=== PATIENT | male | born 1950 | race Caucasian/White ===

== ENCOUNTER 2018-07-31 09:24 | Day surgery (SDC) | payer OTHER ==
[2018-07-31] MEDS ORDERED: LACTATED RINGERS 1,000 ML IV SCH (09:44)
[2018-07-31 10:10] VITALS: TEMP 97.6
[2018-07-31] MEDS ORDERED: LIDOCAINE 1% 20 ML VIAL (10MG/ML) FOR IV START INTRADERMA ONE (10:19)
[2018-07-31] MEDS ORDERED: PROPOFOL 10 MG/ML 20 ML VIAL IV ONE (10:35)
[2018-07-31] MEDS ORDERED: LIDOCAINE 1% INJ 10MG/ML (20 ML MDV) ONE (10:35)
--- NOTE | 2018-07-31 11:09 | P.PCN ---
Date of Procedure: 07/31/18 Procedure(s) Performed: Procedure: Total colonoscopy. Preoperative diagnosis: Screening for neoplasia. Postoperative diagnosis: Exam within normal limits. Preparation: HalfLytely prep. Sedation: Was provided by anesthesia. Brief clinical history: The patient is a 68-year-old male who is scheduled for this evaluation for screening for neoplasia age being his risk factor. He had a prior exam more than 12 or 15 years ago. The patient has no specific abdominal symptoms, change in bowel habits, bleeding or anemia. Procedure: With the patient on his left lateral decubitus position and after informed consent and adequate sedation, the perianal area was inspected and it did not show any fissures or fistulas. There were no masses felt on digital rectal examination. The Olympus CFH 190L video colonoscope was then inserted in the rectum in the usual fashion and advanced to the cecum. The preparation was less than ideal. The mucosa appeared healthy. No polyps or tumors were seen or any obvious diverticular disease or other pathology. I retroflexed the endoscope in the rectum before the endoscope was withdrawn. The patient tolerated the procedure well. Plan: The patient was reassured. Since his preparation was less than ideal, I recommended repeat exam in 5 years before we go with a 10-year schedule. He will follow up with you as planned.
[2018-07-31 11:18] VITALS: BP 125/74; PULSE 74; RESP 16
== END 2018-07-31 11:32 | disposition home or self-care (01) ==
LOC: ORWHC2ENDO 09:24
DX: Z12.11 Encounter for screening for malignant neoplasm of colon (principal); I25.10 Atherosclerotic heart disease of native coronary artery without angina pectoris; I10 Essential (primary) hypertension; E78.5 Hyperlipidemia, unspecified; Z95.5 Presence of coronary angioplasty implant and graft; F17.200 Nicotine dependence, unspecified, uncomplicated; K21.9 Gastro-esophageal reflux disease without esophagitis; Z79.899 Other long term (current) drug therapy
CPT/HCPCS: J2001; J2704; G0121

== ENCOUNTER → 2018-12-12 | Outpatient (CLI) | payer MEDICARE, OTHER ==
--- NOTE | 2018-12-12 13:50 | XR ---
Cervical spine Limited HISTORY: Pain, remote history of trauma 3 views of the cervical spine There is a minimal anterolisthesis grade 1 C2-3, retrolisthesis grade 1 C3-4, C4-5, C5-6. Multilevel spondylosis is present. Loss of disc height greatest at C3-4. Vertebral soft tissues remarkable for s ome calcification likely in the carotid artery distribution on the right and possibly left. Lung apic es are normal. There is multilevel facet arthropathy. IMPRESSION: Degenerative disc disease, facet arthropathy. Additional findings above.
--- NOTE | 2018-12-12 13:52 | XR ---
Lumbar spine HISTORY: Pain, remote history of trauma 3 views of the lumbar spine No comparisons Lumbar vertebral bodies show preserved height. There is a marked scoliotic curvature present of the t horacic lumbar spine. Multilevel spondylosis is present. Loss of disc height present at the intervert ebral levels. Sclerosis present in the posterior elements of the lumbar spine. There are vascular lianne cifications noted incidentally. Ribs are not clearly identified at what is believed to be T12. Questi on some sacralization of L5. IMPRESSION: Osteopenia. Scoliosis, degenerative disc disease and facet arthropathy, additional findin gs above. Correlate with plain film prior to any intervention.
== END | disposition home or self-care (01) ==
LOC: RADXRMAIN 11:50
PROVIDERS: ATTEND Chiropractor
DX: M43.12 Spondylolisthesis, cervical region (principal); M50.30 Other cervical disc degeneration, unspecified cervical region; M51.36 Other intervertebral disc degeneration, lumbar region; M47.812 Spondylosis without myelopathy or radiculopathy, cervical region; M47.816 Spondylosis without myelopathy or radiculopathy, lumbar region; M46.92 Unspecified inflammatory spondylopathy, cervical region; M46.96 Unspecified inflammatory spondylopathy, lumbar region; M41.86 Other forms of scoliosis, lumbar region; M85.88 Other specified disorders of bone density and structure, other site
CPT/HCPCS: 72040; 72100

== ENCOUNTER → 2019-06-03 | Outpatient (CLI) | payer MEDICARE, OTHER ==
[2019-06-03 09:01] LABS: African American GFR (CKD) >90 (>60 ml/min/1.73 sqM); Blood Urea Nitrogen 9 mg/dL (9-20)
--- NOTE | 2019-06-03 10:35 | CT ---
EXAMINATION TYPE: CT chest w con DATE OF EXAM: 06/03/2019 COMPARISON: NONE HISTORY: Shortness of breath, COPD CT DLP: 376.24 mGycm. Automated Exposure Control for Dose Reduction was Utilized. TECHNIQUE: CT scan of the thorax is performed following with IV Contrast, patient injected with 100 ml mL of Isovue 300. FINDINGS: LUNGS: There is mild linear scarring and/or atelectasis in both bases. No suspicious nodules or natasha s. No consolidation. No pleural effusion or pneumothorax. Mild diffuse emphysematous change slightly more prominent in the upper lungs. MEDIASTINUM: There are no greater than 1 cm hilar or mediastinal lymph nodes. No cardiomegaly or pe ricardial effusion is seen. Coronary artery calcification and/or stents. OTHER: Hypodense lesion lateral right hepatic lobe favor simple thin-walled cyst image 57. There is a hemivertebra T11 level causing focal dextroconvex scoliosis and loss of normal thoracic kyphosis. Th ere is moderate multilevel spurring throughout the thoracic spine. IMPRESSION: 1. Mild emphysematous change without acute pulmonary process. 2. 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
--- NOTE | 2019-06-03 10:58 | CT ---
EXAMINATION TYPE: CT hip RT wo con DATE OF EXAM: 06/03/2019 COMPARISON: None. HISTORY: Hip pain CT DLP: 273.28 mGycm Automated exposure control for dose reduction was used. FINDINGS: There is mild to borderline moderate axial joint space loss in the right hip. There is mild acetabula r spurring superior lateral aspect. There is no suspicious joint effusion. No significant subchondral cystic change. Femoral head shape is maintained. No suspicious focal osseous lesion. Muscle bulk in the right thigh I is maintained. No significant right groin hernia or adenopathy. Visualized portion of pelvis shows no significant abnormality. Some occasional sigmoid colonic divert icula are present. IMPRESSION: As above.
== END | disposition home or self-care (01) ==
LOC: RADCTMAIN 08:21
PROVIDERS: ATTEND Family Medicine
DX: J43.9 Emphysema, unspecified (principal); M76.891 Other specified enthesopathies of right lower limb, excluding foot
CPT/HCPCS: 82565; 84520; 71260; 36415; 73700; Q9967

== ENCOUNTER 2020-11-01 13:26 | Inpatient (IN) | payer OTHER, MEDICARE ==
[2020-11-01 14:09] LABS: Basophils % (A) 1 %; Eosinophils % (A) 1 %; HCT 33.7 % (39.0-53.0); HGB 12.5 gm/dL (13.0-17.5); Lymphocytes # (A) 1.7 k/uL (1.0-4.8); Lymphocytes % (A) 41 %; MCH 37.3 pg (25.0-35.0); MCHC 36.9 g/dL (31.0-37.0); Mean Platelet Volume 7.3; Monocytes # (A) 0.3 k/uL (0-1.0); Monocytes % (A) 8 %; Neutrophils % (A) 48 %; Platelet Count 135 k/uL (150-450); RBC 3.34 m/uL (4.30-5.90); RDW 12.9 % (11.5-15.5); WBC 4.2 k/uL (3.8-10.6)
[2020-11-01 14:18] LABS: INR 1.1 (<1.2); Partial Thromboplastin Time 29.3 sec (22.0-30.0); Prothrombin Time 11.3 sec (9.0-12.0)
[2020-11-01 14:26] LABS: ALT 28 U/L (4-49); AST 79 U/L (17-59); African American GFR (CKD) >90 (>60 ml/min/1.73 sqM); Albumin 2.9 g/dL (3.5-5.0); Alkaline Phosphatase 107 U/L (38-126); Anion Gap 8 mmol/L; Blood Urea Nitrogen 2 mg/dL (9-20); Calcium 7.5 mg/dL (8.4-10.2); Carbon Dioxide 30 mmol/L (22-30); Chloride 87 mmol/L (98-107); Glucose 88 mg/dL (74-99); Non-African American GFR(CKD) >90 (>60 ml/min/1.73 sqM); Sodium 125 mmol/L (137-145); Total Bilirubin 0.9 mg/dL (0.2-1.3); Total Protein 5.2 g/dL (6.3-8.2)
[2020-11-01 14:28] LABS: Potassium 2.2 mmol/L (3.5-5.1)
[2020-11-01] MEDS ORDERED: POTASSIUM CHLORIDE ER 20 MEQ TAB.ER PO STA (14:41)
--- NOTE | 2020-11-01 14:47 | ED ---
General Adult HPI - General Chief complaint: Chest Pain Stated complaint: Sent by pcp Time Seen by Provider: 11/01/20 14:39 Source: patient, RN notes reviewed, old records reviewed Mode of arrival: ambulatory Limitations: no limitations - History of Present Illness Initial comments: 70-year-old male presenting for evaluation of abnormal outpatient lab. Patient was called by the [facility] with a potassium of 2.2. He does admit to daily alcohol consumption. He is uncertain if he is on any diuretic medication. Additionally complains of some intermittent chest pain over the past several months which has been associated with alcohol consumption. Patient denies current chest pain. Denies palpitations. Denies trauma pain nausea vomiting. - Related Data Home Medications Medication Instructions Recorded Confirmed Acetaminophen Tab [Tylenol Tab] 650 mg PO BID 07/31/18 07/31/18 Aspirin [[place] Aspirin EC] 1 tab PO 07/31/18 Atorvastatin [Lipitor] 0.5 tab PO HS 07/31/18 07/31/18 Ibuprofen [Motrin] 400 mg PO BID 07/31/18 07/31/18 Metoprolol Succinate [Toprol Xl] 50 mg PO 07/31/18 Ranitidine HCl [Zantac] 150 mg PO BID 07/31/18 07/31/18 Sennosides [Senna] 1 tab PO 07/31/18 Terazosin HCl 2 mg PO 07/31/18 amLODIPine [Norvasc] 10 mg PO DAILY 07/31/18 07/31/18 traZODone HCL [TraZODone HCl] 07/31/18 Allergies Allergy/AdvReac Type Severity Reaction Status Date / Time No Known Allergies Allergy Verified 11/01/20 13:31 Review of Systems ROS Statement: Those systems with pertinent positive or pertinent negative responses have been documented in the HPI. ROS Other: All systems not noted in ROS Statement are negative. Past Medical History Past Medical History: Coronary Artery Disease (CAD) History of Any Multi-Drug Resistant Organisms: None Reported Past Surgical History: Heart Catheterization With Stent, Orthopedic Surgery Additional Past Surgical History / Comment(s): 4 STENTS PLACED IN THE Past Anesthesia/Blood Transfusion Reactions: No Reported Reaction Date of Last Stent Placement:: 4 STENTS Past Psychological History: No Psychological Hx Reported Smoking Status: Current every day smoker Past Alcohol Use History: Daily, Occasional Past Drug Use History: Marijuana - Past Family History Brother(s) Family Medical History: Cancer, Diabetes Mellitus General Exam Limitations: no limitations General appearance: alert, in no apparent distress Head exam: Present: atraumatic, normocephalic Eye exam: Present: normal appearance, PERRL ENT exam: Present: mucous membranes dry Neck exam: Present: normal inspection. Absent: tenderness, meningismus Respiratory exam: Present: normal lung sounds bilaterally. Absent: respiratory distress, wheezes Cardiovascular Exam: Present: regular rate, normal rhythm GI/Abdominal exam: Present: soft. Absent: distended, tenderness, guarding, rebound Extremities exam: Present: normal inspection, normal capillary refill. Absent: pedal edema, calf tenderness Neurological exam: Present: alert, oriented X3, CN II-XII intact. Absent: motor sensory deficit Psychiatric exam: Present: normal affect, normal mood Course Vital Signs 11/01/20 13:27 Temperature 98.2 F Pulse Rate 62 Respiratory 18 Rate Blood Pressure 114/74 O2 Sat by Pulse 99 Oximetry EKG Findings - EKG Comments: EKG Findings:: EKG: Normal sinus rhythm, prolonged QT, ventricular rate is 64, P R interval 164, QRS duration 94, QTC 484, no ST segment elevation. Medical Decision Making - Medical Decision Making 62-year-old male presenting with abnormal outpatient lab. Patient has a potassium of 2.2, magnesium 1.1. These are replaced with both IV and oral medication. Patient will be admitted to a monitored bed. Case is discussed with Dr. Christy. - Lab Data Result diagrams: 11/01/20 13:41 11/01/20 13:41 Lab Results 11/01/20 11/01/20 11/01/20 Range/Units 13:41 13:41 13:41 WBC 4.2 (3.8-10.6) k/uL RBC 3.34 L (4.30-5.90) m/uL Hgb 12.5 L (13.0-17.5) gm/dL Hct 33.7 L (39.0-53.0) % MCV 101.0 H (80.0-100.0) fL MCH 37.3 H (25.0-35.0) pg MCHC 36.9 (31.0-37.0) g/dL RDW 12.9 (11.5-15.5) % Plt Count 135 L (150-450) k/uL MPV 7.3 Neutrophils % 48 % Lymphocytes % 41 % Monocytes % 8 % Eosinophils % 1 % Basophils % 1 % Neutrophils # 2.0 (1.3-7.7) k/uL Lymphocytes # 1.7 (1.0-4.8) k/uL Monocytes # 0.3 (0-1.0) k/uL Eosinophils # 0.0 (0-0.7) k/uL Basophils # 0.0 (0-0.2) k/uL PT 11.3 (9.0-12.0) sec INR 1.1 (<1.2) APTT 29.3 (22.0-30.0) sec Sodium 125 L (137-145) mmol/L Potassium 2.2 L* (3.5-5.1) mmol/L Chloride 87 L (98-107) mmol/L Carbon Dioxide 30 (22-30) mmol/L Anion Gap 8 mmol/L BUN 2 L (9-20) mg/dL Creatinine 0.64 L (0.66-1.25) mg/dL Est GFR (CKD-EPI)AfAm >90 (>60 ml/min/1.73 sqM) Est GFR (CKD-EPI)NonAf >90 (>60 ml/min/1.73 sqM) Glucose 88 (74-99) mg/dL Calcium 7.5 L (8.4-10.2) mg/dL Magnesium (1.6-2.3) mg/dL Total Bilirubin 0.9 (0.2-1.3) mg/dL AST 79 H (17-59) U/L ALT 28 (4-49) U/L Alkaline Phosphatase 107 (38-126) U/L Troponin I (0.000-0.034) ng/mL Total Protein 5.2 L (6.3-8.2) g/dL Albumin 2.9 L (3.5-5.0) g/dL 11/01/20 11/01/20 Range/Units 13:41 13:41 WBC (3.8-10.6) k/uL RBC (4.30-5.90) m/uL Hgb (13.0-17.5) gm/dL Hct (39.0-53.0) % MCV (80.0-100.0) fL MCH (25.0-35.0) pg MCHC (31.0-37.0) g/dL RDW (11.5-15.5) % Plt Count (150-450) k/uL MPV Neutrophils % % Lymphocytes % % Monocytes % % Eosinophils % % Basophils % % Neutrophils # (1.3-7.7) k/uL Lymphocytes # (1.0-4.8) k/uL Monocytes # (0-1.0) k/uL Eosinophils # (0-0.7) k/uL Basophils # (0-0.2) k/uL PT (9.0-12.0) sec INR (<1.2) APTT (22.0-30.0) sec Sodium (137-145) mmol/L Potassium (3.5-5.1) mmol/L Chloride (98-107) mmol/L Carbon Dioxide (22-30) mmol/L Anion Gap mmol/L BUN (9-20) mg/dL Creatinine (0.66-1.25) mg/dL Est GFR (CKD-EPI)AfAm (>60 ml/min/1.73 sqM) Est GFR (CKD-EPI)NonAf (>60 ml/min/1.73 sqM) Glucose (74-99) mg/dL Calcium (8.4-10.2) mg/dL Magnesium 1.1 L (1.6-2.3) mg/dL Total Bilirubin (0.2-1.3) mg/dL AST (17-59) U/L ALT (4-49) U/L Alkaline Phosphatase (38-126) U/L Troponin I <0.012 (0.000-0.034) ng/mL Total Protein (6.3-8.2) g/dL Albumin (3.5-5.0) g/dL Disposition Clinical Impression: Hypomagnesemia, Hypokalemia Disposition: ADMITTED IP TO THIS [facility] Condition: Stable Is patient prescribed a controlled substance at d/c from ED?: No Referrals: [facility],Clinic [Primary Care Provider] - 1-2 days Decision to Admit Reason: Admit from EC Decision Date: 11/01/20 Decision Time: 15:25
[2020-11-01] MEDS ORDERED: NALOXONE 0.4 MG/ML 1 ML VIAL IV PRN (15:19)
--- NOTE | 2020-11-01 15:19 | XR ---
EXAMINATION TYPE: XR chest 2V DATE OF EXAM: 11/01/2020 COMPARISON: Chest CT June 03, 2019 HISTORY: Chest pain. TECHNIQUE: Frontal and lateral views of the chest are obtained. FINDINGS: There is [id number] chronic emphysematous and pulmonary fibrotic changes redemonstra aidan without suspicious new focal air space opacity, pleural effusion, or pneumothorax seen. The card iac silhouette size is stable and within normal limits with atherosclerotic and slightly ectatic thor acic aorta. The osseous structures are demineralized. Multilevel spurring in the spine. IMPRESSION: Chronic changes without acute pulmonary process.
[2020-11-01] MEDS ORDERED: LORazepam 2 MG/ML INJ IV PRN ×3 (15:21)
[2020-11-01] MEDS ORDERED: THIAMINE 100 MG/ML 2 ML VIAL IM STA (15:21)
[2020-11-01] MEDS: POTASSIUM CHLORIDE 10 MEQ in WATER FOR INJECTION 1 100ML.BAG IVPB SCH ×4 (15:54→21:02)
[2020-11-01] MEDS: MAGNESIUM SULFATE-D5W PMX 1 GM in DEXTROSE/WATER 1 100ML.BAG IVPB SCH ×2 (15:55→16:48)
[2020-11-01] MEDS: THIAMINE 100 MG TAB PO SCH (21:05)
[2020-11-01] MEDS ORDERED: ALBUTEROL NEBULIZED 2.5 MG/3 ML INHALATION PRN (21:13)
[2020-11-01] MEDS ORDERED: ACETAMINOPHEN TAB 325 MG TAB PO PRN (21:15)
[2020-11-01] MEDS: METOPROLOL TARTRATE 50 MG TAB PO SCH (22:21)
[2020-11-01] MEDS: ATORVASTATIN 20 MG TAB PO SCH (22:21)
[2020-11-01] MEDS: DOXAZOSIN 4 MG TAB PO SCH (22:22)
[2020-11-01] MEDS ORDERED: Potassium Replacement Protocol 1 EACH MISC MISCELLANE PRN (23:11)
[2020-11-01] MEDS ORDERED: SENNOSIDES 8.6 MG TAB PO PRN (23:12)
--- NOTE | 2020-11-01 23:47 | P.HPIM ---
History of Present Illness H&P Date: 11/01/20 Chief Complaint: Abnormal lab value Patient is a 70-year-old male with a known history of coronary artery disease with history of stent placement x4, currently everyday smoker and daily alcohol use and marijuana use was sent to hospital due to abnormal lab values. Patient had lab work-up done at [place] [facility] and potassium was found to be 2.2. Patient was informed to go to ER. Otherwise patient has been drinking on daily basis one-point of alcohol. not on any diuretics at home. No leg swelling or signs of fluid overload.Patient states that she was having palpitations at home. Denied any complaints of nausea or vomiting or abdominal pain. No diarrhea. D enied any recent illnesses. No dysuria or hematuria. Blood pressure was 114/74 on admission pulse 62 respiration 18 and pulse ox 99% on room air Chest x-ray showed chronic changes without acute pulmonary process. EKG showed normal sinus rhythm with prolonged QT Lab data showed WBC 4.2 hemoglobin 12.5 MCV 101.0 and platelets 135 Sodium 135 potassium 2.2 chloride 87 BUN 2 creatinine 0.64 magnesium 1.1 and calcium 7.5 AST 2879 and ALT 28 Albumin 2.9 COVID-19 PCR not detected Review of Systems Constitutional: Patient denies any fever or chills . No generalized weakness or weight loss. Abdomen: Patient denied nausea vomiting and diarrhea and abdominal pain. Cardiovascular: Patient denies any chest pain or short of breath no palpitations. Respiratory: patient denied any cough or sputum production. No shortness of breath Neurologic: Patient denied any numbness or tingling headache. Musculoskeletal: Patient denies any complaints of joint swelling or deformity. Skin: Negative Psychiatric: Negative Endocrine: No heat or cold intolerance. No recent weight gain. Genitourinary: No dysuria or hematuria. All other 14 point ROS negative except the above Past Medical History Past Medical History: Coronary Artery Disease (CAD) History of Any Multi-Drug Resistant Organisms: None Reported Past Surgical History: Heart Catheterization With Stent, Orthopedic Surgery Additional Past Surgical History / Comment(s): 4 STENTS PLACED IN THE Past Anesthesia/Blood Transfusion Reactions: No Reported Reaction Date of Last Stent Placement:: 4 STENTS Past Psychological History: No Psychological Hx Reported Smoking Status: Current every day smoker Past Alcohol Use History: Daily, Occasional Additional Past Alcohol Use History / Comment(s): Patient states he drinks 1 pint per day Past Drug Use History: Marijuana - Past Family History Brother(s) Family Medical History: Cancer, Diabetes Mellitus Medications and Allergies Home Medications Medication Instructions Recorded Confirmed Type Sennosides [Senna] 1 tab PO BID PRN 07/31/18 11/01/20 History Terazosin HCl 4 mg PO HS 07/31/18 11/01/20 History amLODIPine [Norvasc] 10 mg PO DAILY 07/31/18 11/01/20 History Albuterol Sulfate [Albuterol 2 puff PO RT-Q4H PRN 11/01/20 11/01/20 History Sulfate Hfa] Aspirin EC [Ecotrin Low Dose] 81 mg PO DAILY 11/01/20 11/01/20 History Cholecalciferol [Vitamin D3 (25 25 mcg PO DAILY 11/01/20 11/01/20 History Mcg = 1000 Iu)] Clopidogrel Bisulfate [Plavix] 75 mg PO DAILY 11/01/20 11/01/20 History Famotidine 20 mg PO DAILY 11/01/20 11/01/20 History Ibuprofen [Motrin Ib] 600 mg PO BID PRN 11/01/20 11/01/20 History Metoprolol Tartrate [Lopressor] 50 mg PO BID 11/01/20 11/01/20 History Multivitamins, Thera [Multivitamin 1 tab PO DAILY 11/01/20 11/01/20 History (formulary)] Potassium Chloride ER [K-Dur 20] 20 meq PO DAILY 11/01/20 11/01/20 History Rosuvastatin Calcium [Crestor] 10 mg PO DAILY 11/01/20 11/01/20 History Simvastatin 20 mg PO HS 11/01/20 11/01/20 History Allergies Allergy/AdvReac Type Severity Reaction Status Date / Time No Known Allergies Allergy Verified 11/01/20 15:58 Physical Exam Vitals: Vital Signs Temp Pulse Pulse Resp BP BP Pulse Ox 11/01/20 20:00 65 16 147/99 97 11/01/20 18:17 66 18 138/75 99 11/01/20 16:26 76 11/01/20 13:27 98.2 F 62 18 114/74 99 Intake and Output 11/01/20 11/01/20 11/01/20 06:59 14:59 22:59 Output Total 550 Balance -550 Output: Urine 550 Other: Weight 72.575 kg 72.575 kg PHYSICAL EXAMINATION: Patient is lying in the bed comfortably, no acute distress, awake alert and orie nted.. HEENT: Normocephalic. Neck is supple. Pupils reactive. Nostrils clear. Oral cavity is moist. Ears reveal no drainage. Neck reveals no JVD, carotid bruits, or thyromegaly. CHEST EXAMINATION: Trachea is central. Symmetrical expansion. Lung alvarado clear to auscultation and percussion. CARDIAC: Normal S1, S2 with no gallops. No murmurs ABDOMEN: Soft. Bowel sounds normal. No organomegaly. No abdominal bruits. Extremities: reveal no edema. No clubbing or cyanosis Neurologically awake, alert, oriented x3 with well-coordinated movements. No focal deficits noted Skin: No rash or skin lesions. Psychiatric: Coperative. Nonsuicidal Musculoskeletal: No joint swelling or deformity. Normal range of motion. Results CBC & Chem 7: 11/01/20 13:41 11/01/20 13:41 Labs: Abnormal Lab Results - Last 24 Hours (Table) 11/01/20 11/01/20 11/01/20 Range/Units 13:41 13:41 13:41 RBC 3.34 L (4.30-5.90) m/uL Hgb 12.5 L (13.0-17.5) gm/dL Hct 33.7 L (39.0-53.0) % MCV 101.0 H (80.0-100.0) fL MCH 37.3 H (25.0-35.0) pg Plt Count 135 L (150-450) k/uL Sodium 125 L (137-145) mmol/L Potassium 2.2 L* (3.5-5.1) mmol/L Chloride 87 L (98-107) mmol/L BUN 2 L (9-20) mg/dL Creatinine 0.64 L (0.66-1.25) mg/dL Calcium 7.5 L (8.4-10.2) mg/dL Magnesium 1.1 L (1.6-2.3) mg/dL AST 79 H (17-59) U/L Total Protein 5.2 L (6.3-8.2) g/dL Albumin 2.9 L (3.5-5.0) g/dL Thrombosis Risk Factor Assmnt - DVT/VTE Prophylaxis DVT/VTE Prophylaxis: Pharmacologic Prophylaxis ordered - Choose All That Apply Any of the Below Risk Factors Present?: Yes Each Factor Represents 1 point: Medical pt on bed rest Other Risk Factors: Yes Each Risk Factor Represents 2 Points: Age 61-74 years Other congenital or acquired thrombophilia - If yes, enter type in comment: No Thrombosis Risk Factor Assessment Total Risk Factor Score: 3 Thrombosis Risk Factor Assessment Level: Moderate Risk Assessment and Plan Assessment: Severe hypokalemia and hypomagnesemia with EKG changes Prolonged QT secondary to hypokalemia Hypovolemic hyponatremia Elevated AST level greater than ALT due to alcohol use Acute alcohol hepatitis Macrocytosis and thrombocytopenia secondary to alcoholic Hypoalbuminemia and mild protein calorie malnutrition Coronary artery disease history of stent placement x4 DVT prophylaxis with heparin subcu Plan: Patient will be started on IV hydration with normal saline. Replace potassium and magnesium aggressively and repeat levels. Monitor for alcohol withdrawal symptoms. Continue with home medications and aspirin, beta-blockers and statins will be continued. Continue to monitor closely and further recommendations based on the clinical course. Alcohol abstinence has been counseled extensively. Time with Patient: Greater than 30
[2020-11-02] MEDS: HEPARIN SODIUM,PORCINE 5,000 UNIT/ML 1 ML VIAL SQ SCH ×3 (00:51→16:27)
[2020-11-02] MEDS: SODIUM CHLORIDE 0.9% 1,000 ML IV SCH ×3 (00:51→18:32)
[2020-11-02] MEDS: THIAMINE 100 MG TAB PO SCH ×2 (06:04→17:07)
[2020-11-02 08:24] LABS: African American GFR (CKD) >90 (>60 ml/min/1.73 sqM); Anion Gap 0 mmol/L; Blood Urea Nitrogen 2 mg/dL (9-20); Calcium 7.4 mg/dL (8.4-10.2); Carbon Dioxide 36 mmol/L (22-30); Chloride 94 mmol/L (98-107); Glucose 103 mg/dL (74-99); Magnesium 1.5 mg/dL (1.6-2.3); Non-African American GFR(CKD) >90 (>60 ml/min/1.73 sqM); Sodium 130 mmol/L (137-145)
[2020-11-02] MEDS ORDERED: Potassium Replacement Protocol 1 EACH MISC MISCELLANE PRN (08:39)
[2020-11-02] MEDS: FAMOTIDINE 20 MG TAB PO SCH (08:49)
[2020-11-02] MEDS: METOPROLOL TARTRATE 50 MG TAB PO SCH ×2 (08:49→22:52)
[2020-11-02] MEDS: amLODIPine 10 MG TAB PO SCH (08:49)
[2020-11-02] MEDS: ASPIRIN 81 MG PO SCH (08:49)
[2020-11-02] MEDS: CLOPIDOGREL 75 MG TAB PO SCH (08:49)
[2020-11-02] MEDS: MULTIVITAMINS, THERA 1 EACH TAB PO SCH (08:49)
[2020-11-02] MEDS: POTASSIUM CHLORIDE ER 20 MEQ TAB.ER PO SCH ×8 (08:52→22:49)
[2020-11-02] MEDS ORDERED: Magnesium Replacement Protocol 1 EACH MISC MISCELLANE PRN (08:56)
[2020-11-02] MEDS ORDERED: POTASSIUM CHLORIDE ER 20 MEQ TAB.ER PO SCH (09:00)
[2020-11-02] MEDS: MAGNESIUM SULFATE-D5W PMX 1 GM in DEXTROSE/WATER 1 100ML.BAG IVPB SCH ×5 (09:30→16:42)
[2020-11-02] MEDS: CHOLECALCIFEROL 25 MCG (1000 IU) TABLET PO SCH (11:32)
[2020-11-02] MEDS ORDERED: POTASSIUM CHLORIDE 20 MEQ in WATER FOR INJECTION 1 100ML.BAG IVPB STA (13:47)
[2020-11-02] MEDS: ATORVASTATIN 20 MG TAB PO SCH (20:22)
[2020-11-02] MEDS: DOXAZOSIN 4 MG TAB PO SCH (20:23)
--- NOTE | 2020-11-02 23:51 | P.PN ---
Subjective Progress Note Date: 11/02/20 Principal diagnosis: Severe hypokalemia and hypomagnesemia Patient is a 70-year-old male with a known history of coronary artery disease with history of stent placement x4, currently everyday smoker and daily alcohol use and marijuana use was sent to hospital due to abnormal lab values. Patient had lab work-up done at [place] [facility] and potassium was found to be 2.2. Patient was informed to go to ER. Otherwise patient has been drinking on daily basis one-point of alcohol. not on any diuretics at home. No leg swelling or signs of fluid overload.Patient states that she was having palpitations at home. Denied any complaints of nausea or vomiting or abdominal pain. No diarrhea. Denied any recent illnesses. No dysuria or hematuria. Blood pressure was 114/74 on admission pulse 62 respiration 18 and pulse ox 99% on room air Chest x-ray showed chronic changes without acute pulmonary process. EKG showed normal sinus rhythm with prolonged QT Lab data showed WBC 4.2 hemoglobin 12.5 MCV 101.0 and platelets 135 Sodium 135 potassium 2.2 chloride 87 BUN 2 creatinine 0.64 magnesium 1.1 and calcium 7.5 AST 2879 and ALT 28 Albumin 2.9 COVID-19 PCR not detected 11/02/2020 Patient potassium level is still critically low. Denies any complaints of chest pain or palpitations. No shortness of breath. No complaints of headache or dizziness or lightheadedness. No fever no chills. Denied any nausea vomiting or diarrhea. Continue to monitor for withdrawal symptoms. Current medications reviewed. Objective - Vital Signs Vital signs: Vital Signs Temp 98.0 F 11/02/20 20:00 Pulse 54 L 11/02/20 20:00 Resp 17 11/02/20 20:00 BP 165/85 11/02/20 20:00 Pulse Ox 98 11/02/20 20:00 Intake & Output 11/02/20 11/02/20 11/03/20 06:59 18:59 06:59 Intake Total 440 Output Total 1750 800 Balance -1750 -360 Intake: Oral 440 Output: Urine 1750 800 Other: Voiding Method Urinal Urinal Toilet # Voids 2 # Bowel Movements 1 - Exam PHYSICAL EXAMINATION: Patient is lying in the bed comfortably, no acute distress, awake alert and oriented.. HEENT: Normocephalic. Neck is supple. Pupils reactive. Nostrils clear. Oral cavity is moist. Ears reveal no drainage. Neck reveals no JVD, carotid bruits, or thyromegaly. CHEST EXAMINATION: Trachea is central. Symmetrical expansion. Lung alvarado clear to auscultation and percussion. CARDIAC: Normal S1, S2 with no gallops. No murmurs ABDOMEN: Soft. Bowel sounds normal. No organomegaly. No abdominal bruits. Extremities: reveal no edema. No clubbing or cyanosis Neurologically awake, alert, oriented x3 with well-coordinated movements. No focal deficits noted Skin: No rash or skin lesions. Psychiatric: Coperative. Nonsuicidal Musculoskeletal: No joint swelling or deformity. Normal range of motion. - Labs CBC & Chem 7: 11/01/20 13:41 11/02/20 20:54 Labs: Abnormal Lab Results - Last 24 Hours (Table) 11/02/20 11/02/20 11/02/20 Range/Units 07:07 16:20 20:54 Sodium 130 L (137-145) mmol/L Potassium 2.0 L* 2.7 L* 3.0 L (3.5-5.1) mmol/L Chloride 94 L (98-107) mmol/L Carbon Dioxide 36 H (22-30) mmol/L BUN 2 L (9-20) mg/dL Creatinine 0.60 L (0.66-1.25) mg/dL Glucose 103 H (74-99) mg/dL Calcium 7.4 L (8.4-10.2) mg/dL Magnesium 1.5 L (1.6-2.3) mg/dL Assessment and Plan Assessment: Severe hypokalemia and hypomagnesemia with EKG changes Prolonged QT secondary to hypokalemia Hypovolemic hyponatremia Elevated AST level greater than ALT due to alcohol use Acute alcohol hepatitis Macrocytosis and thrombocytopenia secondary to alcoholic Hypoalbuminemia and mild protein calorie malnutrition Coronary artery disease history of stent placement x4 DVT prophylaxis with heparin subcu Plan: Patient will be started on IV hydration with normal saline. Replace potassium and magnesium aggressively and repeat levels. Monitor for alcohol withdrawal symptoms. Continue with home medications and aspirin, beta-blockers and statins will be continued. Continue to monitor closely and further recommendations based on the clinical course. Alcohol abstinence has been counseled extensively.
[2020-11-03] MEDS: POTASSIUM CHLORIDE ER 20 MEQ TAB.ER PO SCH ×4 (00:09→12:30)
[2020-11-03] MEDS: HEPARIN SODIUM,PORCINE 5,000 UNIT/ML 1 ML VIAL SQ SCH ×3 (00:12→17:40)
[2020-11-03] MEDS: SODIUM CHLORIDE 0.9% 1,000 ML IV SCH ×2 (07:26→16:55)
[2020-11-03] MEDS: THIAMINE 100 MG TAB PO SCH ×2 (07:28→17:41)
[2020-11-03] MEDS: ASPIRIN 81 MG PO SCH (08:46)
[2020-11-03] MEDS: FAMOTIDINE 20 MG TAB PO SCH (08:47)
[2020-11-03] MEDS: MULTIVITAMINS, THERA 1 EACH TAB PO SCH (08:47)
[2020-11-03] MEDS: CHOLECALCIFEROL 25 MCG (1000 IU) TABLET PO SCH (08:47)
[2020-11-03] MEDS: amLODIPine 10 MG TAB PO SCH (08:47)
[2020-11-03] MEDS: CLOPIDOGREL 75 MG TAB PO SCH (08:47)
[2020-11-03] MEDS: METOPROLOL TARTRATE 50 MG TAB PO SCH (08:47)
[2020-11-03 08:58] LABS: HCT 32.9 % (39.0-53.0); MCH 37.8 pg (25.0-35.0); MCHC 36.3 g/dL (31.0-37.0); MCV 104.2 fL (80.0-100.0); Macrocytosis Slight; Mean Platelet Volume 7.4; Platelet Count 128 k/uL (150-450); RBC 3.16 m/uL (4.30-5.90); RDW 13.4 % (11.5-15.5); WBC 3.8 k/uL (3.8-10.6)
[2020-11-03 09:20] LABS: ALT 32 U/L (4-49); AST 86 U/L (17-59); African American GFR (CKD) >90 (>60 ml/min/1.73 sqM); Albumin 2.7 g/dL (3.5-5.0); Alkaline Phosphatase 100 U/L (38-126); Anion Gap 2 mmol/L; Blood Urea Nitrogen <2 mg/dL (9-20); Calcium 8.1 mg/dL (8.4-10.2); Carbon Dioxide 33 mmol/L (22-30); Chloride 95 mmol/L (98-107); Glucose 114 mg/dL (74-99); Magnesium 1.5 mg/dL (1.6-2.3); Non-African American GFR(CKD) >90 (>60 ml/min/1.73 sqM); Potassium 3.2 mmol/L (3.5-5.1); Sodium 130 mmol/L (137-145); Total Bilirubin 0.8 mg/dL (0.2-1.3)
[2020-11-03] MEDS ORDERED: MAGNESIUM SULFATE-D5W PMX 1 GM in DEXTROSE/WATER 1 100ML.BAG IVPB SCH (10:15)
[2020-11-03] MEDS ORDERED: POTASSIUM CHLORIDE 20 MEQ in WATER FOR INJECTION 1 100ML.BAG IVPB STA (10:31)
[2020-11-03] MEDS: MAGNESIUM SULFATE-D5W PMX 1 GM in DEXTROSE/WATER 1 100ML.BAG IVPB SCH ×3 (12:29→16:54)
[2020-11-03 16:12] VITALS: BP 115/61; PULSE 94; RESP 16; TEMP 97.4
== END 2020-11-03 19:01 | disposition home or self-care (01) | DRG 641 ==
LOC: EC 13:26 → 3SCARD 15:20
PROVIDERS: ADMIT Internal Medicine; ATTEND Internal Medicine
DX: E87.6 Hypokalemia (principal); E44.1 Mild protein-calorie malnutrition; R07.9 Chest pain, unspecified; E87.1 Hypo-osmolality and hyponatremia; I25.10 Atherosclerotic heart disease of native coronary artery without angina pectoris; Z95.5 Presence of coronary angioplasty implant and graft; Z20.822 Contact with and (suspected) exposure to COVID-19; F17.200 Nicotine dependence, unspecified, uncomplicated; Z83.3 Family history of diabetes mellitus; E83.42 Hypomagnesemia; F12.90 Cannabis use, unspecified, uncomplicated; E86.1 Hypovolemia; K70.10 Alcoholic hepatitis without ascites; D69.59 Other secondary thrombocytopenia; Z72.89 Other problems related to lifestyle; Z79.82 Long term (current) use of aspirin; Z79.02 Long term (current) use of antithrombotics/antiplatelets; D75.89 Other specified diseases of blood and blood-forming organs; Z68.23 Body mass index [BMI] 23.0-23.9, adult; Z80.9 Family history of malignant neoplasm, unspecified
CPT/HCPCS: 36415; 71046; 80048; 80053; 83735; 84132; 84484; 85025; 85027; 85610; 85730; 87635; 93005; 96365; 96366; 96368; 96372; 99285

== ENCOUNTER 2020-12-09 20:16 | Emergency (ER) | payer OTHER, MEDICARE ==
[2020-12-09] MEDS ORDERED: SODIUM CHLORIDE 0.9% 1,000 ML IV ONE (20:20)
[2020-12-09] MEDS ORDERED: DIPH,PERTUS(ACELL)TETVAC-LF 0.5 ML VIAL IM ONE (20:22)
[2020-12-09 20:24] VITALS: TEMP 98
--- NOTE | 2020-12-09 20:28 | ED ---
Fall HPI - General Stated Complaint: Fall Time Seen by Provider: 12/09/20 20:16 Source: patient, EMS Mode of arrival: EMS - History of Present Illness Initial Comments: This is a 70-year-old male history of COPD recent admission for hypokalemia hypomagnesemia who apparently was on the upper former garage and he fell down approximately 20 steps. He had been drinking vodka apparently. Initially when EMS arrived the patient was unresponsive but later started to awaken and now was awake and alert oriented 2-3. He complains of head pain no neck pain pain to the right rib area also some abrasions he had to the right dorsal wrist to his not: Right hand. Per paramedics he did have a contusion hematoma and abrasion to the forehead and frontal scalp region. No loss of function to his upper or lower extremities he did come in with a cervical collar on. Patient was a priority [address] Gilmore did respond. Patient is reported to be on blood thinners though the name of the blood there is unknown at this time. MD Complaint: fall - Related Data Home Medications Medication Instructions Recorded Confirmed Sennosides [Senna] 1 tab PO BID PRN 07/31/18 11/01/20 Terazosin HCl 4 mg PO HS 07/31/18 11/01/20 amLODIPine [Norvasc] 10 mg PO DAILY 07/31/18 11/01/20 Albuterol Sulfate [Albuterol 2 puff PO RT-Q4H PRN 11/01/20 11/01/20 Sulfate Hfa] Aspirin EC [Ecotrin Low Dose] 81 mg PO DAILY 11/01/20 11/01/20 Cholecalciferol [Vitamin D3 (25 25 mcg PO DAILY 11/01/20 11/01/20 Mcg = 1000 Iu)] Famotidine 20 mg PO DAILY 11/01/20 11/01/20 Metoprolol Tartrate [Lopressor] 50 mg PO BID 11/01/20 11/01/20 Multivitamins, Thera [Multivitamin 1 tab PO DAILY 11/01/20 11/01/20 (formulary)] Simvastatin 20 mg PO HS 11/01/20 11/01/20 Potassium Chloride ER [K-Dur 20] 20 meq PO DAILY 12/09/20 12/09/20 Allergies Allergy/AdvReac Type Severity Reaction Status Date / Time No Known Allergies Allergy Verified 11/01/20 15:58 Review of Systems ROS Statement: Those systems with pertinent positive or pertinent negative responses have been documented in the HPI. ROS Other: All systems not noted in ROS Statement are negative. Past Medical History Past Medical History: Coronary Artery Disease (CAD) History of Any Multi-Drug Resistant Organisms: None Reported Past Surgical History: Heart Catheterization With Stent, Orthopedic Surgery Additional Past Surgical History / Comment(s): 4 STENTS PLACED IN THE Past Anesthesia/Blood Transfusion Reactions: No Reported Reaction Date of Last Stent Placement:: 4 STENTS Past Psychological History: No Psychological Hx Reported Smoking Status: Current every day smoker Past Alcohol Use History: Daily, Occasional Past Drug Use History: Marijuana - Past Family History Brother(s) Family Medical History: Cancer, Diabetes Mellitus General Exam - General Exam Comments Initial Comments: This is a well-developed sec appearing male who is awake and alert at this time. He demonstrates a [place] Coma Scale of 12 there is a smell of alcohol conjoiners on his breath Limitations: no limitations General appearance: alert, lethargic Head exam: Present: normocephalic, other (Hematoma contusion and multiple abrasions seen to the frontal scalp no) Eye exam: Present: normal appearance, PERRL, EOMI. Absent: scleral icterus, conjunctival injection, periorbital swelling ENT exam: Present: normal exam ( step-off or crepitation or tenderness palpation), mucous membranes moist Neck exam: Present: normal inspection, other (No surgery or bruits) Respiratory exam: Present: chest wall tenderness (Penicillin anterior lateral right chest no definite step-off or crepitation no abrasions or open wound seen), decreased breath sounds Cardiovascular Exam: Present: regular rate, normal rhythm, normal heart sounds. Absent: systolic murmur, diastolic murmur, rubs, gallop, clicks GI/Abdominal exam: Present: soft, normal bowel sounds. Absent: distended, tenderness, guarding, rebound, rigid Extremities exam: Present: full ROM, normal capillary refill, other (Multiple abrasions seen over the right hand over the interphalangeal joints and MCP joints no suture repair indicated no active bleeding at this time no foreign body seen. Skin abrasion seen over the dorsal forearm wrist region. Additionally superficial abrasion seen over the medial left ankle and). Absent: tenderness, pedal edema, joint swelling, calf tenderness Back exam: Present: normal inspection Neurological exam: Present: alert, oriented X3, CN II-XII intact. Absent: motor sensory deficit Psychiatric exam: Present: normal mood, flat affect Skin exam: Present: warm, dry, normal color. Absent: intact, rash Course Vital Signs 12/09/20 20:20 Temperature 98 F Pulse Rate 89 Respiratory 18 Rate Blood Pressure 156/116 O2 Sat by Pulse 100 Oximetry - Reevaluation(s) Reevaluation #1: 12/09/20 20:35 Dipti F initial examination. Noted have a tonic-clonic seizure lasting approximately 1 minute. He did demonstrate sonorous respirations afterwards. 2 mg of IV Ativan was given. Reevaluation #2: 12/09/20 22:20 Patient has no change in status he still confused he does apparently have evidence of postictal state versus concussion. Reevaluation #3: 12/09/20 22:20 I did discuss the findings with Dr. Gilmore. The patient is continued [place] Coma Scale of approximately 12 the seizure evidence of concussion as well as the complicating factors of alcohol withdrawal hyponatremia patient does require [facility] level care he'll be transferred to [facility] I did discuss the case with Dr. Brownlee trauma surgeon on-call he has agreed to set the patient transfer. Medical Decision Making - Lab Data Result diagrams: 12/09/20 20:29 12/09/20 20:29 Lab Results 12/09/20 12/09/20 12/09/20 Range/Units 20:29 20:29 20:29 WBC 5.9 (3.8-10.6) k/uL RBC 3.66 L (4.30-5.90) m/uL Hgb 13.7 (13.0-17.5) gm/dL Hct 37.6 L (39.0-53.0) % MCV 102.6 H (80.0-100.0) fL MCH 37.3 H (25.0-35.0) pg MCHC 36.4 (31.0-37.0) g/dL RDW 13.0 (11.5-15.5) % Plt Count 124 L (150-450) k/uL MPV 6.7 Neutrophils % 66 % Lymphocytes % 27 % Monocytes % 5 % Eosinophils % 0 % Basophils % 0 % Neutrophils # 3.9 (1.3-7.7) k/uL Lymphocytes # 1.6 (1.0-4.8) k/uL Monocytes # 0.3 (0-1.0) k/uL Eosinophils # 0.0 (0-0.7) k/uL Basophils # 0.0 (0-0.2) k/uL Macrocytosis Slight PT 11.4 (9.0-12.0) sec INR 1.1 (<1.2) APTT 27.2 (22.0-30.0) sec Sodium 126 L (137-145) mmol/L Potassium 3.9 (3.5-5.1) mmol/L Chloride 94 L (98-107) mmol/L Carbon Dioxide 24 (22-30) mmol/L Anion Gap 8 mmol/L BUN 3 L (9-20) mg/dL Creatinine 0.76 (0.66-1.25) mg/dL Est GFR (CKD-EPI)AfAm >90 (>60 ml/min/1.73 sqM) Est GFR (CKD-EPI)NonAf >90 (>60 ml/min/1.73 sqM) Glucose 121 H (74-99) mg/dL Calcium 8.4 (8.4-10.2) mg/dL Total Bilirubin 0.6 (0.2-1.3) mg/dL AST 104 H (17-59) U/L ALT 33 (4-49) U/L Alkaline Phosphatase 83 (38-126) U/L Creatine Kinase 62 (55-170) U/L Troponin I (0.000-0.034) ng/mL Total Protein 5.5 L (6.3-8.2) g/dL Albumin 3.2 L (3.5-5.0) g/dL Serum Alcohol 18 mg/dL Blood Type Blood Type Recheck Bld Type Recheck Status Antibody Screen Spec Expiration Date 12/09/20 12/09/20 Range/Units 20:29 20:29 WBC (3.8-10.6) k/uL RBC (4.30-5.90) m/uL Hgb (13.0-17.5) gm/dL Hct (39.0-53.0) % MCV (80.0-100.0) fL MCH (25.0-35.0) pg MCHC (31.0-37.0) g/dL RDW (11.5-15.5) % Plt Count (150-450) k/uL MPV Neutrophils % % Lymphocytes % % Monocytes % % Eosinophils % % Basophils % % Neutrophils # (1.3-7.7) k/uL Lymphocytes # (1.0-4.8) k/uL Monocytes # (0-1.0) k/uL Eosinophils # (0-0.7) k/uL Basophils # (0-0.2) k/uL Macrocytosis PT (9.0-12.0) sec INR (<1.2) APTT (22.0-30.0) sec Sodium (137-145) mmol/L Potassium (3.5-5.1) mmol/L Chloride (98-107) mmol/L Carbon Dioxide (22-30) mmol/L Anion Gap mmol/L BUN (9-20) mg/dL Creatinine (0.66-1.25) mg/dL Est GFR (CKD-EPI)AfAm (>60 ml/min/1.73 sqM) Est GFR (CKD-EPI)NonAf (>60 ml/min/1.73 sqM) Glucose (74-99) mg/dL Calcium (8.4-10.2) mg/dL Total Bilirubin (0.2-1.3) mg/dL AST (17-59) U/L ALT (4-49) U/L Alkaline Phosphatase (38-126) U/L Creatine Kinase (55-170) U/L Troponin I <0.012 (0.000-0.034) ng/mL Total Protein (6.3-8.2) g/dL Albumin (3.5-5.0) g/dL Serum Alcohol mg/dL Blood Type O Positive Blood Type Recheck No Previous Record Bld Type Recheck Status CABO Indicated Antibody Screen NEGATIVE Spec Expiration Date 12/12/20202328 - EKG Data -: EKG Interpreted by Me (Tachycardia 127. Interval 176 QRS 72 QT since QTC 294/427 artifact present) Critical Care Time Critical Care Time: Yes Total Critical Care Time: 49 Critical Care Time: Total care time includes initial presentation with history physical labs x-rays and CAT scans discuss with the paramedics transported the patient to the emergency department discussed with the patient's family multiple reevaluation the patient. Discussion with the trauma surgeon at our facility as well as the trauma surgeon at the receiving facility discussed with the enemas crew reported patient to [facility] review of old history was available and documentation of the above Disposition Clinical Impression: Fall, Concussion, Seizure, Multiple abrasions, Multiple contusions, Hyponatremia, Alcoholism, Closed head injury with concussion Disposition: OTHER INSTITUTION NOT DEFINED Condition: Fair Referrals: [facility],Clinic [Primary Care Provider] - 1-2 days - Out of Hospital Transfer - Req. Specs Out of Hospital Transfer - Requested Specifics: Other Emergency Center
[2020-12-09] MEDS ORDERED: LORazepam 2 MG/ML INJ IV STA (20:32)
[2020-12-09 20:41] LABS: Basophils % (A) 0 %; Eosinophils % (A) 0 %; HCT 37.6 % (39.0-53.0); HGB 13.7 gm/dL (13.0-17.5); Lymphocytes # (A) 1.6 k/uL (1.0-4.8); Lymphocytes % (A) 27 %; MCH 37.3 pg (25.0-35.0); MCHC 36.4 g/dL (31.0-37.0); MCV 102.6 fL (80.0-100.0); Macrocytosis Slight; Mean Platelet Volume 6.7; Monocytes # (A) 0.3 k/uL (0-1.0); Monocytes % (A) 5 %; Neutrophils # (A) 3.9 k/uL (1.3-7.7); Neutrophils % (A) 66 %; Platelet Count 124 k/uL (150-450); RBC 3.66 m/uL (4.30-5.90); WBC 5.9 k/uL (3.8-10.6)
[2020-12-09 20:52] LABS: ALT 33 U/L (4-49); AST 104 U/L (17-59); African American GFR (CKD) >90 (>60 ml/min/1.73 sqM); Albumin 3.2 g/dL (3.5-5.0); Alcohol 18 mg/dL; Alkaline Phosphatase 83 U/L (38-126); Anion Gap 8 mmol/L; Blood Urea Nitrogen 3 mg/dL (9-20); Calcium 8.4 mg/dL (8.4-10.2); Carbon Dioxide 24 mmol/L (22-30); Chloride 94 mmol/L (98-107); Creatine Kinase 62 U/L (55-170); Glucose 121 mg/dL (74-99); Non-African American GFR(CKD) >90 (>60 ml/min/1.73 sqM); Potassium 3.9 mmol/L (3.5-5.1); Sodium 126 mmol/L (137-145); Total Bilirubin 0.6 mg/dL (0.2-1.3); Total Protein 5.5 g/dL (6.3-8.2)
[2020-12-09 20:53] LABS: INR 1.1 (<1.2); Partial Thromboplastin Time 27.2 sec (22.0-30.0); Prothrombin Time 11.4 sec (9.0-12.0)
--- NOTE | 2020-12-09 21:06 | XR ---
EXAMINATION TYPE: XR chest 1V portable DATE OF EXAM: 12/09/2020 COMPARISON: 11/01/2020 HISTORY: Chest pain fell down the steps. Pain. TECHNIQUE: Single view FINDINGS: There is no heart failure nor confluent pneumonic infiltrate. Costophrenic angles are clear . There are no hilar masses. Heart size is normal. IMPRESSION: No active cardiopulmonary disease. Normal heart. No change.
--- NOTE | 2020-12-09 21:10 | XR ---
EXAMINATION TYPE: XR pelvis AP view DATE OF EXAM: 12/09/2020 COMPARISON: NONE HISTORY: Pain. Fell down the steps. TECHNIQUE: Single view FINDINGS: Pelvic ring is intact. Proximal femurs and hip joints are intact. There is no sign of hip d ysplasia. Sacroiliac joints are intact. There is vascular calcification. IMPRESSION: No acute abnormality of the pelvis.
--- NOTE | 2020-12-09 21:27 | CT ---
EXAMINATION TYPE: CT brain tre jeff DATE OF EXAM: 12/09/2020 COMPARISON: None HISTORY: Trauma. fall down [address] DLP: 1322.5 mGycm Automated exposure control for dose reduction was used. There is some cerebral cortical atrophy. There is no mass effect nor midline shift. There is no sign of intracranial hemorrhage. Calvarium is intact. Skull base is intact. There is normal aeration of th e mastoid sinuses. Cervical vertebra have normal alignment. There is disc space narrowing at C3-4 with minor spur format ion. There is hypertrophic facet arthropathy at C2-3. There is no evidence of cervical spine fracture . IMPRESSION: Mild spondylotic changes in the cervical spine. No fracture. Mild cerebral atrophy. No acute intracranial abnormality.
--- NOTE | 2020-12-09 21:40 | CT ---
EXAMINATION TYPE: CT ChestAbdPelvis w con DATE OF EXAM: 12/09/2020 COMPARISON: 3 views HISTORY: Trauma. fall down [address] DLP: 1158.6 mGycm Automated exposure control for dose reduction was used. CONTRAST: Performed with IV Contrast, patient injected with 100 mL of Isovue 300. Images obtained from the thoracic inlet to the floor the pelvis with IV contrast. The lungs are clear of consolidation. There is minimal subsegmental atelectasis at the lung bases. Th ere is no pleural effusion or pneumothorax. There is no mediastinal adenopathy. Thoracic aorta is ath eromatous. The ascending aorta measures 3.5 cm. There is no dissection. There are no hilar masses. He art size is normal. There is no pericardial effusion. Liver spleen stomach pancreas gallbladder appear normal. The bile ducts are not dilated. There is no adrenal mass. Kidneys show satisfactory contrast opacification. There is no hydronephrosis. Delayed i mages show normal renal excretion. Ureters are not dilated. There is no retroperitoneal adenopathy. Abdominal aorta is atheromatous. Abdominal aorta measures up to 2.9 cm. The bladder distends smoothly. There is no inguinal hernia. There is no free fluid in the pelvis. Appendix is posterior and appears normal. There is no mesenteric edema. There is no ascites or free a ir. There is no bowel obstruction. The hip joints appear intact. Bony pelvis is intact. Sacrum and co ccyx appear intact. There is some mild biconcave changes in the thoracic and lumbar vertebra consistent with mild osteoma lacia. There is spurring of the endplates in the thoracic and lumbar spine. There is no significant l oss of height. Sternum is intact. There is some osteoarthritis in the shoulder joints and worse on th e right side. I see no evidence of a rib fracture. The sacroiliac joints appear intact. The spinal ca nal is small at L4-5. There is similar change also at L3-4. IMPRESSION: No evidence of traumatic injury of the chest abdomen pelvis. No fracture seen. Degenerative changes i n the spine and shoulder joints. Lumbar spinal stenosis.
[2020-12-09] MEDS ORDERED: levETIRAcetam IV 1,000 MG in SALINE 1 100ML.BAG IVPB STA (22:02)
[2020-12-09] MEDS ORDERED: SODIUM CHLORIDE 0.9% 1,000 ML with MVI, ADULT NO.4 WITH VIT K 10 ML, THIAMINE 100 MG, F... IV ONE ×4 (22:45)
[2020-12-09 23:11] VITALS: BP 125/92; PULSE 103; RESP 16
== END 2020-12-09 23:20 | disposition other institution (70) ==
LOC: EC 20:16
DX: S06.0X9A Concussion with loss of consciousness of unspecified duration, initial encounter (principal); S01.81XA Laceration without foreign body of other part of head, initial encounter; T14.8XXA Other injury of unspecified body region, initial encounter; F10.20 Alcohol dependence, uncomplicated; I25.10 Atherosclerotic heart disease of native coronary artery without angina pectoris; F17.200 Nicotine dependence, unspecified, uncomplicated; W10.9XXA Fall (on) (from) unspecified stairs and steps, initial encounter; J44.9 Chronic obstructive pulmonary disease, unspecified; E78.1 Pure hyperglyceridemia
CPT/HCPCS: 93005; 86900; 86901; 80053; 82550; 84484; 85025; 85610; 85730; 86850; 80320; 87636; 72170; 71045; 72125; 70450; 71260; 74177; 90715; 99285; 96374; 96375; 90471; 96361; J2060; J1953; Q9967